=== PATIENT | female | born 1935 | race Native Hawaiian/Other Pacific Islander ===

== ENCOUNTER 2016-09-10 08:50 | Outpatient (CLI) | payer OTHER ==
[~2016-09-10 08:50] MED LIST: A-HYDROCORT100 MG IJ; AMLO2.5T PO; ASPIR-8181 MG PO; CADUET10 MG/10 M PO; CALCIUM600 M1 PO; CALCIUM600 MG PO; CARDURA4 MG PO; LABETALOL300 MG PO; SIMV40TA57 PO; UNITH DIRECT75 MCG PO
[2016-09-10 09:34] LABS: POTASSIUM 3.9 mmol/L (3.6-5.2)
== END 2016-09-10 19:44 | disposition home or self-care (01) ==
LOC: LABW 08:50
PROVIDERS: Internal Medicine Cardiovascular Disease
DX: I10 Essential (primary) hypertension (principal); E78.00 Pure hypercholesterolemia, unspecified; Z79.899 Other long term (current) drug therapy; Z51.81 Encounter for therapeutic drug level monitoring
CPT/HCPCS: 36415; 80053; 80061; 82550; 83735

== ENCOUNTER 2016-10-31 11:17 | Outpatient (CLI) | payer OTHER | END 2016-10-31 11:22 | disposition short-term general hospital (02) | LOC: AMB 11:17 | DX: R55 Syncope and collapse (principal); R51 Headache | CPT/HCPCS: A0425; A0427 ==

== ENCOUNTER 2016-10-31 11:23 | Observation (INO) | payer OTHER ==
[~2016-10-31] VITALS: Ht 162.6 cm; Wt 80.7 kg
[2016-10-31 11:25] VITALS: BP 170/92; TEMP 98.1
[2016-10-31 12:10] LABS: PLATELET COUNT 235 K/uL (152-353)
[2016-10-31 12:17] LABS: POTASSIUM 4.3 mmol/L (3.6-5.2)
[2016-10-31 12:25] VITALS: BP 172/78
[2016-10-31 14:00] VITALS: BP 167/63
[2016-10-31 15:04] VITALS: BP 160/53; TEMP 97.7; Ht 162.6 cm; Wt 80.7 kg
[2016-10-31 20:02] VITALS: BP 148/53; TEMP 98.3
[2016-11-01 00:29] VITALS: BP 147/58; TEMP 98.9
[2016-11-01 02:27] LABS: PLATELET COUNT 209 K/uL (152-353)
[2016-11-01 04:00] VITALS: BP 154/97; TEMP 98.4
[2016-11-01 08:00] VITALS: BP 169/59; TEMP 99.5
[2016-11-01 12:00] VITALS: BP 184/67; TEMP 99.2
[2016-11-01 16:00] VITALS: BP 177/70; TEMP 99.2
== END 2016-11-01 18:45 | disposition home or self-care (01) ==
LOC: ED 11:23 → MED/SURG 13:57
PROVIDERS: Emergency Medicine; ADMIT Specialist
DX: R55 Syncope and collapse (principal); S01.81XA Laceration without foreign body of other part of head, initial encounter; R01.1 Cardiac murmur, unspecified; W18.30XA Fall on same level, unspecified, initial encounter; Y93.89 Activity, other specified; Y92.481 Parking lot as the place of occurrence of the external cause; S06.2X0A Diffuse traumatic brain injury without loss of consciousness, initial encounter; Z79.899 Other long term (current) drug therapy
CPT/HCPCS: 36415; 80053; 80061; 80076; 82550; 83735; 84100; 84443; 84484; 85027; 85610; 93005; 99220; 99284; G0378; J7040

== ENCOUNTER 2017-03-27 08:50 | Outpatient (CLI) | payer OTHER | END 2017-03-27 19:05 | disposition home or self-care (01) | LOC: MAMMO 08:50 | DX: Z12.31 Encounter for screening mammogram for malignant neoplasm of breast (principal) ==

== ENCOUNTER 2017-04-01 08:35 | Outpatient (CLI) | payer OTHER ==
[2017-04-01 09:05] LABS: PLATELET COUNT 253 K/uL (152-353)
[2017-04-01 09:28] LABS: POTASSIUM 4.2 mmol/L (3.6-5.2)
== END 2017-04-01 09:35 | disposition home or self-care (01) ==
LOC: LABW 08:35
PROVIDERS: Nurse Practitioner
DX: I10 Essential (primary) hypertension (principal); E03.8 Other specified hypothyroidism; E55.9 Vitamin D deficiency, unspecified; E78.00 Pure hypercholesterolemia, unspecified
CPT/HCPCS: 36415; 80053; 80061; 82306; 84443; 85027

== ENCOUNTER 2017-11-04 08:20 | Outpatient (CLI) | payer OTHER | END 2017-11-04 18:51 | disposition home or self-care (01) | LOC: LABW 08:20 | PROVIDERS: Internal Medicine Cardiovascular Disease | DX: I10 Essential (primary) hypertension (principal); E78.00 Pure hypercholesterolemia, unspecified | CPT/HCPCS: 36415; 80053; 80061; 82550; 83735 ==

== ENCOUNTER 2018-04-01 09:33 | Outpatient (CLI) | payer OTHER ==
[2018-04-01 09:55] LABS: PLATELET COUNT 235 K/uL (152-353)
[2018-04-01 11:37] LABS: POTASSIUM 4.2 mmol/L (3.6-5.2)
== END 2018-04-01 23:01 | disposition home or self-care (01) ==
LOC: MAMMO 09:33
PROVIDERS: Nurse Practitioner
DX: E03.9 Hypothyroidism, unspecified (principal); Z00.00 Encounter for general adult medical examination without abnormal findings; E78.00 Pure hypercholesterolemia, unspecified; E55.9 Vitamin D deficiency, unspecified; Z12.31 Encounter for screening mammogram for malignant neoplasm of breast
CPT/HCPCS: 36415; 80053; 80061; 82306; 84443; 85027

== ENCOUNTER 2018-09-01 12:55 | Outpatient (CLI) | payer OTHER ==
[2018-09-01] MEDS ORDERED: CARDURA4 MG PO (13:47)
[2018-09-01] MEDS ORDERED: AMLODIPINE BESYLATE PO (13:49)
[2018-09-01] MEDS ORDERED: PRAVACHOL80 MG PO (13:55)
[2018-09-02] MEDS ORDERED: MAG OXIDE400 MG PO (08:28)
[2018-09-02] MEDS ORDERED: CALCIUM600 M1 PO (08:34)
== END 2018-09-01 13:06 | disposition short-term general hospital (02) ==
LOC: AMB 12:55
DX: R07.89 Other chest pain (principal); R05 Cough; R06.02 Shortness of breath
CPT/HCPCS: A0425; A0427

== ENCOUNTER 2018-09-01 13:08 | Inpatient (IN) | payer OTHER ==
[2018-09-01] VITALS (9 sets, daily range): BP systolic 95–154; BP diastolic 48–60; TEMP 98.1–98.6; Ht 162.6 cm; Wt 85.4 kg
[~2018-09-01] VITALS: Ht 162.6 cm; Wt 85.4 kg
[2018-09-01] MEDS ORDERED: CARDURA4 MG PO (13:47)
[2018-09-01] MEDS ORDERED: AMLODIPINE BESYLATE PO (13:49)
[2018-09-01] MEDS ORDERED: PRAVACHOL80 MG PO (13:55)
[2018-09-01 13:58] LABS: POTASSIUM 3.9 mmol/L (3.6-5.2); SODIUM 136 mmol/L (136-145)
[2018-09-01 15:12] LABS: PLATELET COUNT 279 K/uL (152-353)
[2018-09-02] VITALS: BP 131/42; TEMP 98.7
[2018-09-02 04:00] VITALS: BP 135/48; TEMP 98.6
[2018-09-02 05:40] LABS: PLATELET COUNT 244 K/uL (152-353)
[2018-09-02 05:53] LABS: POTASSIUM 3.9 mmol/L (3.6-5.2)
--- NOTE | 2018-09-02 06:41 | NUR ---
Patient was admitted with Pneumonia and is on a Regular diet and IBW 120+/-10% and is 139% IBW and BMI 32 and is Class I Obesity and kcal needs for weight [id number], protein for weight 86-90 grams and fluids for weight x 25 2150 ml per day. Recommend: 1-NCS or 1800 Calorie High Fiber
[2018-09-02 08:05] VITALS: BP 149/48; TEMP 98.5
[2018-09-02] MEDS ORDERED: MAG OXIDE400 MG PO (08:28)
[2018-09-02] MEDS ORDERED: CALCIUM600 M1 PO (08:34)
[2018-09-02 12:00] VITALS: BP 128/49; TEMP 99.1
[2018-09-02 16:00] VITALS: BP 133/49; TEMP 98.7
[2018-09-02 20:00] VITALS: BP 137/49; TEMP 98.3
--- NOTE | 2018-09-02 21:00 | NUR ---
BP MED HELD DUE TO BP 137/49. WILL REEVAL.
--- NOTE | 2018-09-02 23:35 | NUR ---
BP 172/55. LABTALOL GIVEN
[2018-09-03] VITALS: BP 172/55; TEMP 98.7
[2018-09-03 03:53] VITALS: BP 145/47; TEMP 98.5
[2018-09-03 05:38] LABS: PLATELET COUNT 279 K/uL (152-353)
[2018-09-03 06:02] LABS: POTASSIUM 3.7 mmol/L (3.6-5.2)
[2018-09-03 08:00] VITALS: BP 165/57; TEMP 98.1
[2018-09-03 12:00] VITALS: BP 144/46; TEMP 98.1
[2018-09-03 16:00] VITALS: BP 131/86; TEMP 98.2
[2018-09-03 20:00] VITALS: BP 146/52; TEMP 97.7
[2018-09-04] VITALS: BP 158/54; TEMP 97.4
--- NOTE | 2018-09-04 01:58 | NUR ---
09/04/18 0130 RESTING ON LEFT SIDE RESP EVEN NONLABORED NAD NOTED.CC
[2018-09-04 04:00] VITALS: BP 171/55; TEMP 98.2
--- NOTE | 2018-09-04 04:45 | NUR ---
09/04/18 0345 RESTING QUEITLY WITH EYES CLOSED RESP EVEN NONLABORED NAD NOTED.CC
[2018-09-04 05:31] LABS: PLATELET COUNT 293 K/uL (152-353)
[2018-09-04 05:35] LABS: POTASSIUM 3.7 mmol/L (3.6-5.2)
--- NOTE | 2018-09-04 06:29 | NUR ---
09/04/18 0620 PT AWAKE SITTING IN HF SMILING NO C/O THIS AM FAMILY PRESENT IN ROOM.CC
[2018-09-04 08:00] VITALS: BP 146/54; TEMP 98.5
[2018-09-04] MEDS ORDERED: FERROUS SULF325 MG PO (10:37)
[2018-09-04] MEDS ORDERED: LEVOFLOXACIN750 MG PO (10:40)
--- NOTE | 2018-09-04 12:37 | NUR ---
IV DC TIP INTACT. PT DC VIA WC. PT INSTRUCTED TO F/U WITH [facility] IN ONE WEEK AND PCP IN ONE WEEK. PT VERBALIZES UNDERSTANDING. PT TO START LEVAQUIN 750 MG PO DAIY AND FERRROUS SULFATE 325 MG PO DAILY. PT INSTRUCTED TO REPORT ANY SOB, CHEST PAIN, DIFFICULTY BREATHING. PT HAS NO FURTHER QUESTIONS.
== END 2018-09-04 12:35 | disposition home or self-care (01) | DRG 194 ==
LOC: ED 13:08 → MED/SURG 13:48
PROVIDERS: ADMIT Family Medicine
DX: J18.8 Other pneumonia, unspecified organism (principal); J91.8 Pleural effusion in other conditions classified elsewhere; I12.9 Hypertensive chronic kidney disease with stage 1 through stage 4 chronic kidney disease, or unspecified chronic kidney disease; N18.3 Chronic kidney disease, stage 3 (moderate); D50.8 Other iron deficiency anemias; E83.51 Hypocalcemia; E03.8 Other specified hypothyroidism; E78.49 Other hyperlipidemia; I51.7 Cardiomegaly; E83.42 Hypomagnesemia
CPT/HCPCS: 80053; 81000; 82550; 82728; 83540; 83550; 83605; 83880; 84484; 85027; 87040; 87502; 87899; 93005; 93306; 94640; 94664; 94760; 96365; 99284; J1940; J1956

== ENCOUNTER 2019-05-18 15:11 | Outpatient (CLI) | payer OTHER ==
[~2019-05-18 15:11] MED LIST changes: +AMLODIPINE BESYLATE PO; +FERROUS SULF325 MG PO; +LEVOFLOXACIN750 MG PO; +MAG OXIDE400 MG PO; +PRAVACHOL80 MG PO
[2019-05-18 16:04] LABS: PLATELET COUNT 225 K/uL (152-353)
[2019-05-18 16:33] LABS: POTASSIUM 4.4 mmol/L (3.6-5.2)
== END 2019-05-18 21:11 | disposition home or self-care (01) ==
LOC: LAB 15:11
PROVIDERS: Nurse Practitioner Family
DX: Z00.00 Encounter for general adult medical examination without abnormal findings (principal); E83.42 Hypomagnesemia; D64.89 Other specified anemias; E03.8 Other specified hypothyroidism; I10 Essential (primary) hypertension; I25.10 Atherosclerotic heart disease of native coronary artery without angina pectoris; Z79.899 Other long term (current) drug therapy
CPT/HCPCS: 80053; 80061; 83036; 84439; 84443; 85027

== ENCOUNTER 2019-06-10 16:01 | Outpatient (CLI) | payer OTHER ==
[2019-06-10 16:49] LABS: PLATELET COUNT 234 K/uL (152-353)
[2019-06-10 17:07] LABS: POTASSIUM 4.3 mmol/L (3.6-5.2)
== END 2019-06-10 21:45 | disposition home or self-care (01) ==
LOC: LAB 16:01
PROVIDERS: Nurse Practitioner Family
DX: Z00.00 Encounter for general adult medical examination without abnormal findings (principal); E03.8 Other specified hypothyroidism; N17.8 Other acute kidney failure; I10 Essential (primary) hypertension; E78.00 Pure hypercholesterolemia, unspecified; D64.89 Other specified anemias; I25.10 Atherosclerotic heart disease of native coronary artery without angina pectoris; Z79.899 Other long term (current) drug therapy; E55.9 Vitamin D deficiency, unspecified
CPT/HCPCS: 80053; 80061; 82306; 83036; 84439; 84443; 85027

== ENCOUNTER 2021-05-23 09:35 | Outpatient (CLI) | payer OTHER | END 2021-05-23 18:56 | disposition home or self-care (01) | LOC: US 09:35 | PROVIDERS: ATTEND Nurse Practitioner Family | DX: N28.89 Other specified disorders of kidney and ureter (principal) ==